=== PATIENT | female | born 1955 | race Caucasian/White ===

== ENCOUNTER → 2023-11-20 08:45 | Outpatient (REF) | payer OTHER, SELFPAY | LOC: WDC 08:45 | PROVIDERS: ATTENDING PHYSICIAN Family Medicine | DX: Z12.31 Encounter for screening mammogram for malignant neoplasm of breast (principal) | CPT/HCPCS: 77063; 77067 ==

== ENCOUNTER → 2024-04-16 09:02 | Outpatient (REF) | payer OTHER, SELFPAY | LOC: WDC 09:02 | PROVIDERS: ATTENDING PHYSICIAN Internal Medicine | DX: N64.59 Other signs and symptoms in breast (principal); R22.30 Localized swelling, mass and lump, unspecified upper limb | CPT/HCPCS: 76642 ==

== ENCOUNTER → 2024-05-12 07:41 | Outpatient (REF) | payer OTHER, SELFPAY | LOC: RAD 07:41 | PROVIDERS: ATTENDING PHYSICIAN Internal Medicine | DX: M85.80 Other specified disorders of bone density and structure, unspecified site (principal) | CPT/HCPCS: 77080 ==

== ENCOUNTER → 2024-07-09 07:06 | Outpatient (REF) | payer OTHER, SELFPAY ==
[2024-07-09 07:27] LABS: % Basophils 0.7 % (0-2); % Eosinophils 3.9 % (0-6); % Monocytes 7.1 % (1.7-9.3); % Neutrophils 55.3 % (42.2-75.2); Absolute Eosinophils 0.2 10^3/uL (0-0.7); Absolute Lymphocytes 1.4 10^3/uL (1.2-3.4); Absolute Monocytes 0.3 10^3/uL (0.1-0.6); Absolute Neutrophils 2.3 10^3/uL (1.4-6.5); Hematocrit 43.5 % (37.0-47.0); Hemoglobin 14.7 g/dL (12.0-16.0); Mean Corp Hgb Conc. 33.8 g/dL (33.0-37.0); Mean Corpuscular Hgb 29.9 pg (27.0-31.0); Mean Corpuscular Volume 88.4 fL (81.0-99.0); Nucleated Red Blood Cells % 0 %; Platelet Count 238 10^3/uL (130-400); Red Blood Cell Count 4.92 10^6/uL (4.20-5.40); Red Cell Dist. Width 13.4 % (11.5-14.5); White Blood Cell Count 4.1 10^3/uL (4.8-10.8)
[2024-07-09 08:21] LABS: ALT (SGPT) 34 U/L (0-35); AST (SGOT) 27 U/L (14-36); Albumin 5.1 g/dl (3.5-5.0); Alkaline Phosphatase 77 U/L (38-126); Blood Urea Nitrogen 15 mg/dl (7-17); Calcium 9.9 mg/dl (8.4-10.2); Carbon Dioxide 29 mmol/L (22-30); Chloride 103 mmol/L (98-107); Glucose 113 mg/dl (70-99); HDL Cholesterol 100 mg/dl; Iron 205 ug/dl (37-170); LDL Cholesterol, Calculated 83 mg/dl; Potassium 5.4 mmol/L (3.5-5.1); Sodium 141 mmol/L (135-145); Total Bilirubin 1.1 mg/dl (0.2-1.3); Total Cholesterol 208 mg/dl (50-199); Triglyceride 125 mg/dl (10-149); Very Low Density Lipoprotein 25 mg/dl (0-30); eGFR > 60.00
[2024-07-09 08:31] LABS: Percent Saturation 54 % (20-50); Total Iron Binding Capacity 375 ug/dl (265-497)
[2024-07-09 08:47] LABS: Ferritin 15.9 ng/ml (11.1-264.0)
[2024-07-09 09:45] LABS: Glycohemoglobin (HgbA1c) 5.6 % (4.0-5.6)
== END ==
LOC: REG 07:06
PROVIDERS: ATTENDING PHYSICIAN Internal Medicine
DX: I10 Essential (primary) hypertension (principal); R73.03 Prediabetes; D50.9 Iron deficiency anemia, unspecified; E78.5 Hyperlipidemia, unspecified
CPT/HCPCS: 36415; 80053; 80061; 82728; 83036; 83540; 83550; 85025

== ENCOUNTER → 2024-11-24 10:59 | Outpatient (REF) | payer OTHER, SELFPAY | LOC: WDC 10:59 | PROVIDERS: ATTENDING PHYSICIAN Internal Medicine | DX: Z12.31 Encounter for screening mammogram for malignant neoplasm of breast (principal) | CPT/HCPCS: 77063; 77067 ==

== ENCOUNTER 2024-12-20 10:42 | Emergency (ER) | payer OTHER, SELFPAY ==
[2024-12-20 10:49] VITALS: BP 165/87
[2024-12-20 10:54] VITALS: BP 146/84
[2024-12-20 11:00] VITALS: BP 162/85
--- NOTE | 2024-12-20 11:08 | ED.GENMED ---
History of Present Illness
General
Chief Complaint: Allergic Reaction
Source: patient
Exam Limitations: none
Time Seen by Provider: 12/20/24 10:58
Nursing documentation reviewed up to this point in time: agreed with
History of Present Illness
History of Present Illness:
69-year-old female bee sting over her left Achilles just prior to arrival used ice and some Benadryl did not want to take her EpiPen because it was has had swelling to her face before when she was stung on her face feels some
swelling in her throat now no wheezing
Past History
Past History
ED Past Medical History: None
ED Past Surgical History: None
Social History
Tobacco: Non-smoker
Alcohol: Occasional
Drug: None
Living: with family
Employment: Employed
Family History
Family History: Other (n/c)
Review of Systems
Review of Systems
All Other Systems: Not applicable
EENT: Reports sore throat and mouth pain
Respiratory: Denies cough or trouble breathing
ABD/GI: Reports no symptoms
Skin: Reports itching
Phy Exam
Physical Exam
Physical Exam:
Physical Exam
General: no apparent distress, not acutely ill
Neck: Posterior pharynx is clear no tongue swelling no stridor
Heart: s1/s2 regular rate and rhythm, no murmur. equal radial pulses.
Lungs: no acute respiratory distress. clear bilaterally no wheeze
Neuro: alert and oriented. no focal neurological deficits
Skin: no rash
Psychiatric: well kept. interactive and cooperative
Extremities: Mild swelling left Achilles
Course
Orders/Labs/Results
Orders:
Orders
12/20/24 11:05
Ice Pack-Treatment DIRECTED
Location: ankle
EPINEPHrine PF [Adrenalin] 0.3 mg IM NOW STA
Vital Signs
Initial and Last Documented VS:
Initial Vital Signs
Temp Pulse Resp BP Pulse Ox
98.5 F 76 18 165/87 97
12/20/24 10:49 12/20/24 10:49 12/20/24 10:49 12/20/24 10:49 12/20/24 10:49
Last Documented Vital Signs
Temp Pulse Resp BP Pulse Ox
98.5 F 75 13 162/85 99
12/20/24 10:49 12/20/24 11:00 12/20/24 11:00 12/20/24 11:00 12/20/24 11:11
MDM/Problems Addressed
Differential Diagnosis Includes:
Bee sting insect sting no signs of anaphylaxis
MDM/Problems Addressed:
Based
Chronic conditions affecting care:
Anaphylaxis with bee sting
Acute Exacerbation and/or Progression of Chronic Illness:
Anaphylaxis with prior bee sting
*Pulse Oximetry
SaO2: 99
Oxygen Mode of Delivery: Room air
Patient hypoxic: no
*Critical Care Note
Total Time (30-74mins, 75-104mins- exclusive of procedures): 3
Update Note
Update Note:
Update patient appears well already took Benadryl try ice states she does feel little bit of subjective swelling around her throat we will give a dose of epi refill her EpiPen provided reassurance monitor for any recurrence
12 noon patient feeling better vital signs are stable
ED Attending Note
-
Portions of this chart may have been created with voice recognition software.� Occasional wrong word or��sound alike� substitutions may have occurred due to the inherent limitations of voice recognition software.
Discharge Plan
Departure
Patient Disposition: Home (Routine Discharge)
Date of Disposition: 12/20/24
Time of Disposition: 11:59
Patient with high blood pressure during this ER visit?: No
Condition: Good
Discharge Problem:
Allergic reaction to bee sting
Instructions: Insect bites and stings - ED discharge instructions
Prescriptions:
New
epinephrine [EpiPen 2-Viet] 0.3 mg/0.3 mL auto-injector
0.3 mg IM Q5-15M PRN (Reason: anaphylaxis) Qty: 2 4RF
diphenhydramine HCl [Benadryl] 25 mg capsule
25 mg PO TID PRN (Reason: allergy symptoms) Qty: 20 0RF
No Action
epinephrine [EpiPen] 0.3 MG/0.3/SYRINGE auto-injector
0.3 mg IM .STAT PRN (Reason: shortness of breath, swelling) Qty: 1 0RF
epinephrine [EpiPen] 0.3 MG/0.3/SYRINGE auto-injector
0.3 mg IM .STAT PRN (Reason: allergy) Qty: 2 0RF
diphenhydramine HCl [Banophen] 25 MG capsule
25 mg PO Q4HPRN PRN (Reason: itch) Qty: 30 0RF
famotidine 20 mg Tablet
20 mg PO DAILY Qty: 30 2RF
valacyclovir [Valtrex] 1 gram tablet
1,000 mg PO Q8H Qty: 30 0RF
prednisone 10 mg Tablet
See Rx Instructions .ROUTE .COMPLEX Qty: 42 0RF
Rx Instructions:
60 mg daily x2 days, 50 mg d x2 d,
40 mg d x2 d, 30 mg d x2 d,
20 mg d x2 d, then 10 mg daily x 2 d
cephalexin 500 mg capsule
500 mg PO QID Qty: 20 0RF
mupirocin 2 % ointment
1 applic topical BID Qty: 15 0RF
Rx Instructions:
apply to irritated shingles lesions
Referrals:
Cris Leone MD [Family Provider, Internal Medicine]
Interventions
Interventions:
*Risk Screen - Suicide Last Done: 12/20/24 10:49
*General Assessment Last Done: 12/20/24 10:49
*Neglect/Abuse Screening Last Done: 12/20/24 10:49
*ED- Fall Risk Assessment Last Done: 12/20/24 11:06
ED- Cardiac Assessment Last Done: 12/20/24 11:04
ED- Pulmonary Assessment Last Done: 12/20/24 11:04
ED-Skin Assessment Last Done: 12/20/24 11:04
Discharge Date and Time
Print Language: ALGERIAN
[2024-12-20] MEDS: ADRENALIN 0.3 MG IM (11:12)
[2024-12-20 12:00] VITALS: BP 122/65
== END 2024-12-20 12:16 | disposition home or self-care (01) ==
LOC: EMR 10:42
PROVIDERS: EMERGENCY PHYSICIAN Emergency Medicine; FAMILY PHYSICIAN Internal Medicine
DX: T63.441A Toxic effect of venom of bees, accidental (unintentional), initial encounter (principal)
CPT/HCPCS: 99284; 96372

== ENCOUNTER → 2025-03-27 07:09 | Outpatient (REF) | payer OTHER, SELFPAY ==
[2025-03-27 08:12] LABS: Hematocrit 43.0 % (37.0-47.0); Hemoglobin 14.3 g/dL (12.0-16.0); Mean Corp Hgb Conc. 33.3 g/dL (33.0-37.0); Mean Corpuscular Volume 90.7 fL (81.0-99.0); Nucleated Red Blood Cells % 0 %; Platelet Count 220 10^3/uL (130-400); Red Cell Dist. Width 12.4 % (11.5-14.5)
[2025-03-27 08:35] LABS: Urine Character Clear (Clear)
[2025-03-27 08:53] LABS: ALT (SGPT) 28 U/L (0-35); AST (SGOT) 25 U/L (14-36); Albumin 4.8 g/dl (3.5-5.0); Alkaline Phosphatase 74 U/L (38-126); Blood Urea Nitrogen 16 mg/dl (7-17); Calcium 9.7 mg/dl (8.4-10.2); Carbon Dioxide 28 mmol/L (22-30); Chloride 103 mmol/L (98-107); Glucose 102 mg/dl (70-99); HDL Cholesterol 103 mg/dl; Iron 151 ug/dl (37-170); LDL Cholesterol, Calculated 88 mg/dl; Potassium 4.1 mmol/L (3.5-5.1); Sodium 136 mmol/L (135-145); Total Protein 7.2 g/dl (6.3-8.2); Very Low Density Lipoprotein 22 mg/dl (0-30); eGFR > 60.00
[2025-03-27 08:57] LABS: Vitamin D, 25-OH*** 53.9 ng/mL (30-80)
[2025-03-27 09:00] LABS: Microalb - Urine Creatinine 78.900 mg/dl
[2025-03-27 09:02] LABS: Total Iron Binding Capacity 369 ug/dl (265-497)
[2025-03-27 09:06] LABS: Microalbumin, Random Urine 0.6 mg/dl (0.6-1.7)
[2025-03-27 09:15] LABS: Ferritin 25.5 ng/ml (11.1-264.0)
[2025-03-27 09:21] LABS: Urine Red Blood Cell 0-2 /HPF (0-2)
[2025-03-27 10:07] LABS: Vitamin B12 853 pg/ml (239-931)
[2025-03-27 10:25] LABS: Glycohemoglobin (HgbA1c) 5.4 % (4.0-5.9)
[2025-03-27 11:06] LABS: CRP, Ultra Sensitive < 0.30 mg/L (0.30-5.00)
== END ==
LOC: REG 07:09
PROVIDERS: ATTENDING PHYSICIAN Internal Medicine
DX: E55.9 Vitamin D deficiency, unspecified (principal); E78.5 Hyperlipidemia, unspecified; E78.2 Mixed hyperlipidemia; E03.9 Hypothyroidism, unspecified; E64.9 Sequelae of unspecified nutritional deficiency; R73.03 Prediabetes; N39.0 Urinary tract infection, site not specified; Z13.6 Encounter for screening for cardiovascular disorders; E61.1 Iron deficiency; E53.9 Vitamin B deficiency, unspecified
CPT/HCPCS: 36415; 80053; 80061; 81003; 81015; 82043; 82306; 82570; 82607; 82728; 83036; 83540; 83550; 84443; 85025; 86141